=== PATIENT | female | born 1975 | race Caucasian/White ===

== ENCOUNTER → 2020-03-01 | Outpatient (CLI) | payer OTHER ==
[2020-03-01 10:56] LABS: Basophils % (A) 0 %; Eosinophils # (A) 0.2 k/uL (0-0.7); Eosinophils % (A) 2 %; HCT 41.6 % (34.0-46.0); HGB 13.4 gm/dL (11.4-16.0); Lymphocytes # (A) 1.8 k/uL (1.0-4.8); Lymphocytes % (A) 22 %; MCH 27.3 pg (25.0-35.0); MCHC 32.1 g/dL (31.0-37.0); MCV 85.2 fL (80.0-100.0); Mean Platelet Volume 7.3; Monocytes # (A) 0.4 k/uL (0-1.0); Monocytes % (A) 5 %; Neutrophils # (A) 5.6 k/uL (1.3-7.7); Neutrophils % (A) 69 %; Platelet Count 322 k/uL (150-450); RBC 4.88 m/uL (3.80-5.40); WBC 8.1 k/uL (3.8-10.6)
[2020-03-01 16:49] LABS: African American GFR (CKD) 129.4 (60.0-200.0); Albumin 4.2 g/dL (3.80-4.90); Albumin/Globulin Ratio 1.91 (1.60-3.17); Anion Gap 8.7 mmol/L (4.00-12.00); BUN/Creat Ratio 26.67 Ratio (12.00-20.00); Calcium 8.9 mg/dL (8.7-10.3); Carbon Dioxide 23.3 mmol/L (21.6-31.8); Chol/HDL Ratio 3.44; Globulin 2.2 g/dL (1.6-3.3); LDL Cholesterol,Calculated 89.8 mg/dL (0.0-131.0); Non-African American GFR(CKD) 111.6 (60.0-200.0); Potassium 4.5 mmol/L (3.5-5.5); Total Bilirubin 0.2 mg/dL (0.3-1.2); Total Protein 6.4 g/dL (6.2-8.2); VLDL Calculation 20.2 mg/dL (5.00-40.00)
[2020-03-01 18:58] LABS: Hemoglobin A1C 5.4 % (4.0-6.0)
[2020-03-02 13:00] LABS: C. trachomatis,PCR Negative (Neg,Equiv); Chlamydia trachomatis Source Urine; N. gonorrhoeae,PCR Negative (Neg,Equiv); Neisseria Source Urine
== END | disposition home or self-care (01) ==
LOC: LABWHC1 09:45
PROVIDERS: ATTEND Nurse Practitioner Family
DX: E66.01 Morbid (severe) obesity due to excess calories (principal); Z20.9 Contact with and (suspected) exposure to unspecified communicable disease
CPT/HCPCS: 36415; 80053; 80061; 83036; 84443; 85025; 87491; 87591

== ENCOUNTER → 2020-06-18 | Outpatient (CLI) | payer OTHER | END | disposition home or self-care (01) | LOC: LABWHC1 13:03 | PROVIDERS: ATTEND Nurse Practitioner Family | DX: U07.1 COVID-19 (principal) | CPT/HCPCS: U0003; C9803 ==

== ENCOUNTER → 2021-01-16 | Outpatient (CLI) | payer OTHER ==
[2021-01-16 18:45] LABS: Basophils # (A) 0.01 X 10*3/uL (0.00-0.10); Basophils % (A) 0.1 %; Eosinophils # (A) 0.21 X 10*3/uL (0.04-0.35); Eosinophils % (A) 2.4 %; HCT 40.3 % (37.2-46.3); HGB 12.8 g/dL (12.0-15.0); Lymphocytes # (A) 1.58 X 10*3/uL (0.90-5.00); Lymphocytes % (A) 17.8 %; MCH 27.4 pg (27.0-32.0); MCHC 31.8 g/dL (32.0-37.0); MCV 86.1 fL (80.0-97.0); Mean Platelet Volume 10.6 fL (9.5-12.2); Monocytes # (A) 0.65 X 10*3/uL (0.20-1.00); Monocytes % (A) 7.3 %; Neutrophils # (A) 6.41 X 10*3/uL (1.80-7.70); Platelet Count 333 X 10*3/uL (140-440); RBC 4.68 X 10*6/uL (4.10-5.20)
[2021-01-16 23:29] LABS: African American GFR (CKD) 122.1 (60.0-200.0); Albumin 4.3 g/dL (3.80-4.90); Albumin/Globulin Ratio 1.87 (1.60-3.17); Anion Gap 9.8 mmol/L (4.00-12.00); Carbon Dioxide 23.2 mmol/L (21.6-31.8); Chol/HDL Ratio 4.39; Globulin 2.3 g/dL (1.6-3.3); LDL Cholesterol,Calculated 92.2 mg/dL (0.0-131.0); Non-African American GFR(CKD) 105.4 (60.0-200.0); Potassium 4.6 mmol/L (3.5-5.5); Total Bilirubin 0.3 mg/dL (0.2-1.2); Total Protein 6.6 g/dL (6.2-8.2); VLDL Calculation 29.8 mg/dL (5.00-40.00)
[2021-01-16 23:51] LABS: T4, Free (Free Thyroxine) 1.3 ng/dL (0.80-1.80)
== END | disposition home or self-care (01) ==
LOC: LABWHC1 12:29
PROVIDERS: ATTEND Nurse Practitioner
DX: Z00.00 Encounter for general adult medical examination without abnormal findings (principal)
CPT/HCPCS: 36415; 80053; 80061; 84439; 84443; 85025

== ENCOUNTER → 2021-02-05 | Outpatient (CLI) | payer OTHER ==
--- NOTE | 2021-02-06 07:29 | XR ---
EXAMINATION TYPE: XR chest 2V DATE OF EXAM: 02/05/2021 COMPARISON: 05/24/2013 HISTORY: Dyspnea TECHNIQUE: Frontal and lateral views of the chest are obtained. FINDINGS: There is no focal air space opacity, pleural effusion, or pneumothorax seen. The cardiac silhouette size is within normal limits. The osseous structures are intact. IMPRESSION: No acute cardiopulmonary process.
== END | disposition home or self-care (01) ==
LOC: RADXRMAIN 16:58
PROVIDERS: ATTEND Nurse Practitioner
DX: R06.00 Dyspnea, unspecified (principal)
CPT/HCPCS: 71046

== ENCOUNTER → 2021-02-20 | Outpatient (CLI) | payer OTHER ==
--- NOTE | 2021-02-20 08:55 | CT ---
EXAMINATION TYPE: CT chest wo con DATE OF EXAM: 02/20/2021 COMPARISON: None HISTORY: COVID-[address] DLP: 833.[address] of the chest was performed with lung and mediastinal window settings submitted. The la ck of contrast limits evaluation of the vascular, mediastinal and parenchymal structures including th e upper abdomen. LUNGS: The lungs are clear and free of infiltrate. No atelectasis. No pulmonary nodule or mass is de tected. No pleural effusion. No CT evidence of interstitial lung disease. MEDIASTINUM/ROXANA: Thoracic aorta is of normal caliber with limited evaluation given lack of contrast . The heart is not enlarged. No evidence for mediastinal mass. No lymph nodes greater than 1cm. UPPER ABDOMEN: No significant abnormality is seen. OTHER: No significant other abnormality. IMPRESSION: 1. No evidence for infiltrate or interstitial lung disease.
== END | disposition home or self-care (01) ==
LOC: RADCTMAIN 08:20
PROVIDERS: ATTEND Family Medicine
DX: U07.1 COVID-19 (principal); R06.02 Shortness of breath
CPT/HCPCS: 71250

== ENCOUNTER → 2022-11-25 | Outpatient (CLI) | payer OTHER ==
[2022-11-26 02:31] LABS: ALT 20 U/L (8-44); AST 16 U/L (13-35); African American GFR (CKD) 120.4 (60.0-200.0); Albumin 4.3 g/dL (3.8-4.9); Albumin/Globulin Ratio 1.79 (1.60-3.17); Alkaline Phosphatase 98 U/L (41-126); BUN/Creat Ratio 16.86 Ratio (12.00-20.00); Basophils # (A) 0.03 X 10*3/uL (0.00-0.10); Basophils % (A) 0.4 %; Blood Urea Nitrogen 11.8 mg/dL (9.0-27.0); Calcium 9.5 mg/dL (8.7-10.3); Carbon Dioxide 27.1 mmol/L (20.0-27.5); Chloride 103 mmol/L (96-109); Chol/HDL Ratio 4.57 Ratio; Eosinophils # (A) 0.16 X 10*3/uL (0.04-0.35); Eosinophils % (A) 2.2 %; Globulin 2.4 g/dL (1.6-3.3); Glucose 100 mg/dL (70-110); HCT 40.9 % (37.2-46.3); HGB 12.9 g/dL (12.0-15.0); Immature Grans, Automated 0.5 %; LDL Cholesterol,Calculated 122.7 mg/dL (0.0-131.0); Lymphocytes # (A) 1.63 X 10*3/uL (0.90-5.00); Lymphocytes % (A) 22.3 %; MCHC 31.5 g/dL (32.0-37.0); MCV 88.9 fL (80.0-97.0); Mean Platelet Volume 10.6 fL (9.5-12.2); Monocytes # (A) 0.47 X 10*3/uL (0.20-1.00); Monocytes % (A) 6.4 %; NRBC Per 100 WBC 0 /100 WBCS (0.0-0.0); Neutrophils # (A) 4.99 X 10*3/uL (1.80-7.70); Neutrophils % (A) 68.2 %; Non-African American GFR(CKD) 103.9 (60.0-200.0); Platelet Count 329 X 10*3/uL (140-440); Potassium 4.7 mmol/L (3.5-5.5); Sodium 141 mmol/L (135-145); Total Protein 6.7 g/dL (6.2-8.2); WBC 7.32 X 10*3/uL (4.50-10.00)
[2022-11-26 08:48] LABS: HIV 2 AB Non-Reactive (Non-Reactive); HIV AB P24 Non-Reactive (Non-Reactive); HIV P24 AG Non-Reactive (Non-Reactive)
== END | disposition home or self-care (01) ==
LOC: LABWHC1 14:08
PROVIDERS: ATTEND Family Medicine
DX: Z11.4 Encounter for screening for human immunodeficiency virus [HIV] (principal); Z11.59 Encounter for screening for other viral diseases; I10 Essential (primary) hypertension
CPT/HCPCS: 36415; 80053; 80061; 84443; 85025; 86803; 87390

== ENCOUNTER → 2023-03-10 | Outpatient (CLI) | payer OTHER ==
--- NOTE | 2023-03-10 08:45 | MM ---
Reason for Exam: Clinical finding. Baseline mammogram. Patient History: Menarche at age 15. First Full-Term at age 22. Postmenopausal. Risk Values: Beulah 5 year model risk: 0.7%. NCI Lifetime model risk: 7.8%. Prior Study Comparison: Patient's first Mammogram. Tissue Density: There are scattered fibroglandular densities. Findings: Analyzed By CAD. No suspicious mass within the right breast. No definitive abnormality in the patient's palpable region in the right breast. There is a round density mass within the left upper outer quadrant breast at middle depth measuring 9 mm. Probable lymph node. No suspicious group of calcifications in the breast. No architectural distortion. Overall Assessment: Incomplete: need additional imaging evaluation, BI-RAD 0 Management: Diagnostic Breast Ultrasound of both breasts. A clinical breast exam by your physician is recommended on an annual basis and results should be correlated with mammographic findings. This exam should not preclude additional follow-up of suspicious palpable abnormalities. Results were given to the patient verbally at the time of exam. Note on Beulah scores and lifetime risk: 1. A Beulah score greater than 3% is considered moderate risk. If this is the case, consider specialist referral to assess eligibility for a risk reducing agent. If overall lifetime risk for the development of breast cancer is 20% or higher, the patient may qualify for future screening with alternating mammogram and breast MRI. Electronically signed and approved by: Jermaine Lamb D.O.
--- NOTE | 2023-03-10 08:47 | USB ---
Reason for Exam: Additional evaluation requested from abnormal screening. Patient History: Menarche at age 15. First Full-Term at age 22. Postmenopausal. Risk Values: Beulah 5 year model risk: 0.7%. NCI Lifetime model risk: 7.8%. Technique: Method: Targeted. Findings: The upper outer quadrant of the left breast, the area of palpable concern of the right breast, the axilla of both breasts and the retroareolar of both breasts were scanned. Targeted ultrasound of the right breast at patient's recent abnormality at 2:00 15 cm of the nipple demonstrates a benign lipoma measuring 2.5 x 0.9 x 2.5 cm. Additional evaluation of the right nipple and axillary tail were performed without abnormality. Targeted ultrasound of the left breast from 12 3:00 with additional evaluation of the nipple in axial toe was performed. There is a benign lymph node corresponding to mammogram measuring 0.8 x 0.5 x 0.6 cm with central fatty hilum and no thickened cortex. Overall Assessment: Benign, BI-RAD 2 Management: Screening Mammogram of both breasts in 1 year. Clinical management for patient's right chest wall lipoma. A clinical breast exam by your physician is recommended on an annual basis and results should be correlated with mammographic findings. This exam should not preclude additional follow-up of suspicious palpable abnormalities. Results were given to the patient verbally at the time of exam. Electronically signed and approved by: Jermaine Lamb D.O.
== END | disposition home or self-care (01) ==
LOC: RADMAMWWP 07:22
PROVIDERS: ATTEND Family Medicine
DX: N63.10 Unspecified lump in the right breast, unspecified quadrant (principal); Z78.0 Asymptomatic menopausal state
CPT/HCPCS: 77066; 76642; G0279; 77062

== ENCOUNTER → 2023-04-30 | Outpatient (CLI) | payer OTHER ==
[2023-04-30 08:04] VITALS: BP 138/86; PULSE 73; RESP 17; TEMP 98.9
--- NOTE | 2023-04-30 08:16 | P.GSHP ---
History of Present Illness H&P Date: 04/30/23 Siria is a 47-year-old female seen in consultation for Dr. Eliel Mancia regarding a palpable change in the right breast. She underwent a bilateral mammogram [place] [address] this revealed no suspicious masses in the right breast no definitive abnormality in the patient's palpable region in the right breast. There was a round density mass within the left upper outer quadrant breast middle depth probable lymph node. No suspicious group of calcifications in either breast. An bilateral breast ultrasound was recommended. This was performed on the same date. The ultrasound revealed in the upper quadrant of the left breast the area of palpable concern of the right breast and axilla both breasts in the retroareolar of both breasts being scanned. Targeted ultrasound of the right breast revealed a benign-appearing lipoma 2.5 x 2.5 cm. Additional evaluation of the nipple and axillary tail were performed without abnormality. In the left breast there was a benign-appearing lymph node corresponding to mammographic abnormality with a central fatty hilum and no thickened cortex. This was felt to be benign BIRADS 2 and screening mammogram of the breast in 1 year was recommended. Several weeks ago the patient noted an mass in her right breast in the upper inner quadrant region. She hits not certain as to how long it has been there. It is not tender. It has not changed in size since she noted it. She has not had any surgery on her breast. She is not complaining of any recent trauma or infection in the breast. She does not complain of any abnormal nipple discharge. Caffeine: over 2 liter/day nicotine: none, stopped over 20 years used to be 1 PPD for over 10 years chocolate: frequently Family History: father: from lung cancer maternal grandmother: skin cancer paternal grandmother: lung cancer Hormonal history: Menarche: 16 , breast fed: yes, age at first : 22 menopause: no periods for 2 years hormones: none BCP: never used, tubes tied Surgical history: Tubal ligation appy 3 C-sections Medical History: psoraitic arthritis Social HIstory: Nicotine: As above Alcohol: Negative Drugs: Negative - Constitutional Constitutional: Denies chills, Denies fever - EENT Eyes: denies blurred vision, denies pain Ears: deny: decreased hearing, tinnitus Ears, nose, mouth and throat: Denies headache, Denies sore throat - Breasts Breasts: bilateral: as per HPI - Cardiovascular Cardiovascular: Denies chest pain, Denies shortness of breath - Respiratory Respiratory: Denies cough, Denies 7 - Gastrointestinal Gastrointestinal: Denies abdominal pain, Denies diarrhea, Denies nausea, Denies vomiting - Genitourinary (Female) Genitourinary: Denies dysuria, Denies hematuria - Menstruation Menstruation: Reports postmenopausal - Musculoskeletal Musculoskeletal: Denies myalgias - Integumentary Integumentary: Reports as per HPI - Neurological Neurological: Denies numbness, Denies weakness - Psychiatric Psychiatric: Denies anxiety, Denies depression - Endocrine Endocrine: Denies fatigue, Denies weight change - Hematologic/Lymphatic Comment: none - Allergic/Immunologic Allergic/Immunologic: Reports as per HPI Past Medical History Past Medical History: No Reported History Additional Past Medical History / Comment(s): MIGRAINES,BACK PAIN History of Any Multi-Drug Resistant Organisms: None Reported Past Surgical History: Appendectomy, Section, Tubal Ligation Past Anesthesia/Blood Transfusion Reactions: No Reported Reaction, Motion Sickness Past Psychological History: No Psychological Hx Reported Past Alcohol Use History: None Reported Additional Past Alcohol Use History / Comment(s): STARTED SMOKING AGE 15 Past Drug Use History: None Reported - Past Family History Mother Family Medical History: No Reported History Medications and Allergies Home Medications Medication Instructions Recorded Confirmed Type Cholecalciferol [Vitamin D3] 2,000 unit PO DAILY 07/24/15 04/30/23 History Excedrin Migraine 1 tab PO DIRECTED PRN 08/03/15 04/30/23 History Vitamin B12 1 tab PO DAILY 08/03/15 04/30/23 History methylPREDNISolone 1 dose PO DIRECTED 08/03/15 04/30/23 History [Methylprednisolone] Adalimumab [Humira Pen] 1 injection SQ DIRECTED 04/30/23 04/30/23 History Gabapentin 300 mg PO TID 04/30/23 04/30/23 History Allergies Allergy/AdvReac Type Severity Reaction Status Date / Time Sulfa (Sulfonamide Allergy Unknown Unknown Verified 04/30/23 07:48 Antibiotics) Surgical - Exam - General no distress - Eyes normal ocular movement - ENT no hearing loss - Neck trachea midline - Respiratory normal respiratory effort, clear to auscultation - Cardiovascular Rhythm: regular Heart Sounds: normal: S1, S2 - Abdomen Abdomen: soft, non tender, no guarding, no rigid, no rebound - Integumentary normal turgor - Neurologic no disoriented, no combative - Musculoskeletal normal gait - Psychiatric oriented to time, oriented to person, oriented to place, speech is normal, memory intact Breast Exam: BRA: ? size inspection: bilateral grade 3 ptosis palpation: Right breast: Multiple positional exam no dominant masses or nodules of concern in the upper inner chest wall there is a approximately a 2-1/2-3 cm area of nodularity Right axilla: No adenopathy of concern Left breast: Multi-positional exam no dominant masses or nodules of concern Left axilla: No adenopathy of concern Results Mammogram and ultrasound personally reviewed Assessment and Plan Assessment: Impression: Palpable mass right breast/chest wall upper inner quadrant area most likely lipoma psoriatic arthritis BMI 70.4 Plan: Resection of palpable mass right chest wall/breast in the operating room Risk and benefits of the procedure discussed with the patient. Risks include but are not limited to bleeding, infection, reaction to the anesthetic. She understands and wishes to proceed. Cc: Dr. Eliel Mancia
[2023-04-30 16:33] LABS: ALT 21 U/L (8-44); AST 17 U/L (13-35); Albumin 4.3 d/dL (3.8-4.9); Albumin/Globulin Ratio 1.79 Ratio (1.60-3.17); Alkaline Phosphatase 96 U/L (41-126); BUN/Creat Ratio 21.83 Ratio (12.00-20.00); Blood Urea Nitrogen 13.1 mg/dL (9.0-27.0); Calcium 9.6 mg/dL (8.7-10.3); Carbon Dioxide 26.3 mmol/L (21.6-31.8); Chloride 102 mmol/L (96-109); Globulin 2.4 d/dL (1.6-3.3); Glucose 114 mg/dL (70-110); Potassium 4.7 mmol/L (3.5-5.5); Sodium 139 mmol/L (135-145); Total Bilirubin 0.3 mg/dL (0.3-1.2); Total Protein 6.7 d/dL (6.2-8.2)
[2023-04-30 17:04] LABS: Basophils # (A) 0.02 X 10*3/uL (0.00-0.10); Basophils % (A) 0.3 %; Eosinophils # (A) 0.22 X 10*3/uL (0.04-0.35); HGB 13.4 d/dL (12.0-15.0); Lymphocytes # (A) 2.18 X 10*3/uL (0.90-5.00); Lymphocytes % (A) 29.5 %; MCH 28.6 pg (27.0-32.0); MCHC 32.7 d/dL (32.0-37.0); MCV 87.6 FL (80.0-97.0); Mean Platelet Volume 10.5 FL (9.5-12.2); Monocytes # (A) 0.63 X 10*3/uL (0.20-1.00); Monocytes % (A) 8.5 %; NRBC Per 100 WBC 0 X 10*3/uL (0.00-0.01); Neutrophils # (A) 4.32 X 10*3/uL (1.80-7.70); Neutrophils % (A) 58.3 %; Platelet Count 329 X 10*3/uL (140-440); RBC 4.68 X 10*6/uL (4.10-5.20); RDW 12.7 % (11.5-14.5)
== END ==
LOC: WWCWWP 07:34
PROVIDERS: ATTEND Surgery
DX: N63.21 Unspecified lump in the left breast, upper outer quadrant (principal); N63.12 Unspecified lump in the right breast, upper inner quadrant; L40.50 Arthropathic psoriasis, unspecified; Z87.891 Personal history of nicotine dependence; Z88.2 Allergy status to sulfonamides
CPT/HCPCS: 80053; 85025

== ENCOUNTER → 2023-06-12 | Outpatient (CLI) | payer OTHER ==
--- NOTE | 2023-06-12 15:10 | P.PN ---
Subjective Progress Note Date: 06/12/23 H&P Date: 06-12-23 Siria is a 47-year-old female seen in consultation for Dr. Eliel Mancia regarding a palpable change in the right breast. [place] [id number] this revealed no suspicious masses in the right breast no definitive abnormality in the patient's palpable region in the right breast. There was a round density mass within the left upper outer quadrant breast middle depth probable lymph node. No suspicious group of calcifications in either breast. An bilateral breast ultrasound was recommended. This was performed on the same date. The ultrasound revealed in the upper quadrant of the left breast the area of palpable concern of the right breast and axilla both breasts in the retroareolar of both breasts being scanned. Targeted ultrasound of the right breast revealed a benign-appearing lipoma 2.5 x 2.5 cm. Additional evaluation of the nipple and axillary tail were performed without abnormality. In the left breast there was a benign-appearing lymph node corresponding to mammographic abnormality with a central fatty hilum and no thickened cortex. This was felt to be benign BIRADS 2 and screening mammogram of the breast in 1 year was recommended. Several weeks ago the patient noted an mass in her right breast in the upper inner quadrant region. This increased in size recently. She is not certain as to how long it has been there. It is tender. She has not had any surgery on her breast. She is not complaining of any recent trauma or infection in the breast. She does not complain of any abnormal nipple discharge. Caffeine: over 2 liter/day nicotine: none, stopped over 20 years used to be 1 PPD for over 10 years chocolate: frequently Family History: father: from lung cancer maternal grandmother: skin cancer paternal grandmother: lung cancer Hormonal history: Menarche: 16 , breast fed: yes, age at first : 22 menopause: no periods for 2 years hormones: none BCP: never used, tubes tied Surgical history: Tubal ligation appy 3 C-sections Medical History: psoraitic arthritis Social HIstory: Nicotine: As above Alcohol: Negative Drugs: Negative - Constitutional Constitutional: Denies chills, Denies fever - EENT Eyes: denies blurred vision, denies pain Ears: deny: decreased hearing, tinnitus Ears, nose, mouth and throat: Denies headache, Denies sore throat - Breasts Breasts: bilateral: as per HPI - Cardiovascular Cardiovascular: Denies chest pain, Denies shortness of breath - Respiratory Respiratory: Denies cough - Gastrointestinal Gastrointestinal: Denies abdominal pain, Denies diarrhea, Denies nausea, Denies vomiting - Genitourinary (Female) Genitourinary: Denies dysuria, Denies hematuria - Menstruation Menstruation: Reports postmenopausal - Musculoskeletal Musculoskeletal: Denies myalgias - Integumentary Integumentary: Reports as per HPI - Neurological Neurological: Denies numbness, Denies weakness - Psychiatric Psychiatric: Denies anxiety, Denies depression - Endocrine Endocrine: Denies fatigue, Denies weight change - Hematologic/Lymphatic Comment: none - Allergic/Immunologic Allergic/Immunologic: Reports as per HPI Past Medical History Past Medical History: No Reported History Additional Past Medical History / Comment(s): MIGRAINES,BACK PAIN History of Any Multi-Drug Resistant Organisms: None Reported Past Surgical History: Appendectomy, Section, Tubal Ligation Past Anesthesia/Blood Transfusion Reactions: No Reported Reaction, Motion Sickness Past Psychological History: No Psychological Hx Reported Past Alcohol Use History: None Reported Additional Past Alcohol Use History / Comment(s): STARTED SMOKING AGE 15 Past Drug Use History: None Reported - Past Family History Mother Family Medical History: No Reported History Medications and Allergies Home Medications Medication Instructions Recorded Confirmed Type Cholecalciferol [Vitamin D3] 2,000 unit PO DAILY 07/24/15 04/30/23 History Excedrin Migraine 1 tab PO DIRECTED PRN 08/03/15 04/30/23 History Vitamin B12 1 tab PO DAILY 08/03/15 04/30/23 History methylPREDNISolone 1 dose PO DIRECTED 08/03/15 04/30/23 History [Methylprednisolone] Adalimumab [Humira Pen] 1 injection SQ DIRECTED 04/30/23 04/30/23 History Gabapentin 300 mg PO TID 04/30/23 04/30/23 History Allergies Allergy/AdvReac Type Severity Reaction Status Date / Time Sulfa (Sulfonamide Allergy Unknown Unknown Verified 04/30/23 07:48 Antibiotics) Objective - Constitutional General appearance: Present: cooperative - EENT Eyes: Present: EOMI ENT: Present: hearing grossly normal - Neck Neck: Present: normal ROM - Respiratory Respiratory: bilateral: CTA - Cardiovascular Heart sounds: normal: S1, S2 - Integumentary Integumentary: Present: normal turgor - Musculoskeletal Musculoskeletal: Present: gait normal - Psychiatric Psychiatric: Present: A&O x's 3, appropriate affect, intact judgment & insight - Additional findings Additional findings: Breast Exam: BRA: ? size inspection: bilateral grade 3 ptosis palpation: Right breast: Multiple positional exam no dominant masses or nodules of concern in the upper inner chest wall there is a approximately a 2-1/2-3 cm area of nodularity Right axilla: No adenopathy of concern Left breast: Multi-positional exam no dominant masses or nodules of concern Left axilla: No adenopathy of concern Assessment and Plan Assessment: Impression: Palpable mass right breast/chest wall upper inner quadrant area most likely lipoma psoriatic arthritis BMI 70.4 Plan: Resection of palpable mass right chest wall/breast in the operating room Risk and benefits of the procedure discussed with the patient. Risks include but are not limited to bleeding, infection, reaction to the anesthetic. She understands and wishes to proceed. Cc: Dr. Eliel Mancia
[2023-06-12 15:20] VITALS: BP 131/90; PULSE 82; RESP 18; TEMP 98
== END ==
LOC: WWCWWP 14:56
PROVIDERS: ATTEND Surgery
DX: D24.1 Benign neoplasm of right breast (principal); L40.50 Arthropathic psoriasis, unspecified; Z68.45 Body mass index [BMI] 70 or greater, adult; Z88.1 Allergy status to other antibiotic agents; Z88.2 Allergy status to sulfonamides; Z90.49 Acquired absence of other specified parts of digestive tract; Z86.69 Personal history of other diseases of the nervous system and sense organs; Z87.891 Personal history of nicotine dependence

== ENCOUNTER 2023-06-23 07:55 | Day surgery (SDC) | payer OTHER ==
[~2023-06-23 07:55] MED LIST: DEXAMETHASONE SOD PHOSPHATE 4 MG/ML 1 ML VIAL IV ONE; HEPARIN SODIUM,PORCINE/PF 5,000 UNIT/0.5 ML SYRINGE SQ PRN; LACTATED RINGERS 1,000 ML IV SCH; MIDAZOLAM 2 MG/2 ML VIAL IV PRN; ONDANSETRON 4 MG/2 ML VIAL IVP ONE; Pre Op ABX Message 1 EACH MISC MISCELLANE ONE; SCOPOLAMINE 1 MG/72 HR PATCH TRANSDERM ONE
[2023-06-23] MEDS ORDERED: LIDOCAINE 1% (10MG/ML) FOR IV START INTRADERMA ONE (08:46)
[2023-06-23] MEDS ORDERED: SCOPOLAMINE 1 MG/72 HR PATCH TRANSDERM ONE (08:47)
[2023-06-23] MEDS ORDERED: fentaNYL (PF) 50 MCG/ML 2 ML AMP ONE (09:24)
[2023-06-23] MEDS ORDERED: LIDOCAINE 1% INJ 10MG/ML (20 ML MDV) ONE (09:24)
[2023-06-23] MEDS ORDERED: SUGAMMADEX SODIUM 200 MG/2 ML SDV IV ONE (09:24)
[2023-06-23] MEDS ORDERED: SUCCINYLCHOLINE CHLORIDE 200 MG/10 ML VIAL IV ONE (09:24)
[2023-06-23] MEDS ORDERED: PROPOFOL 10 MG/ML 20 ML VIAL IV ONE (09:24)
[2023-06-23] MEDS ORDERED: MIDAZOLAM 2 MG/2 ML VIAL ONE (09:24)
[2023-06-23] MEDS ORDERED: ROCURONIUM 10 MG/ML (5 ML VIAL) IV ONE (09:24)
--- NOTE | 2023-06-23 10:13 | P.OP ---
Date of Procedure: 06/23/23 Preoperative Diagnosis: Mass right chest wall Postoperative Diagnosis: same Procedure(s) Performed: excision of soft tissue mass right chest wall Anesthesia: KING Surgeon: Meredith Garza Estimated Blood Loss (ml): 4 IV fluids (ml): 400 Pathology: other (mass right chest wall consistant with lipoma) Condition: stable Disposition: same day Indications for Procedure: Symptomatic soft tissue mass right chest wall Operative Findings: probable lipoma right chest wall/upper inner breast area Description of Procedure: The patient was taken to the operative suite. Following induction of anesthesia the right chest wall/ upper inner breast was prepped and draped in a sterile fashion. An incision was made over the palpable abnormality. A 2.5 cm lobulated area of fat was identified and removed. This was consistent with the ultrasound findings and palpable abnormality. The wound was irrigated. After we were assured that hemostasis was attained the deep tissues were closed using 3-0 Vicryl suture. The skin was closed using 4-0 Monocryl. The patient tolerated the procedure in stable condition.
[2023-06-23] MEDS: HYDROmorphone 0.5 MG/0.5 ML SYRINGE IVP PRN ×2 (10:30→10:37)
[2023-06-23 10:32] VITALS: TEMP 97.2
[2023-06-23 12:04] VITALS: BP 120/80
[2023-06-23 12:05] VITALS: PULSE 91; RESP 20
[2023-06-23] MEDS ORDERED: IBUPROFEN 600 MG TAB PO ONE (12:05)
== END 2023-06-23 12:48 | disposition home or self-care (01) ==
LOC: OR 07:55
PROVIDERS: ATTEND Surgery
DX: D17.79 Benign lipomatous neoplasm of other sites (principal); D24.1 Benign neoplasm of right breast; R22.2 Localized swelling, mass and lump, trunk; G43.909 Migraine, unspecified, not intractable, without status migrainosus; Z87.891 Personal history of nicotine dependence; Z79.1 Long term (current) use of non-steroidal anti-inflammatories (NSAID); Z79.899 Other long term (current) drug therapy; Z88.2 Allergy status to sulfonamides; Z98.51 Tubal ligation status; Z98.890 Other specified postprocedural states; Z87 Personal history of other diseases and conditions
CPT/HCPCS: 21555; 81025; 88305; J2250; J0330; J1100; J2405; J2001; J3010; J2704; J1170; J1644

== ENCOUNTER → 2023-07-02 | Outpatient (CLI) | payer OTHER ==
--- NOTE | 2023-07-02 15:51 | P.PN ---
Progress Note - Text Progress Note Date: 07/02/23 Siria is a 48 year old status post resedtion of a lipoma on 06-23-23 from the right breast. She tolerated the procedure without difficulty. lungs: clear heart: RRR Incision: Clean and dry She is due for bilateral mammogram in February-2024 with appointment at that time CC: DR. Eliel Mnacia
[2023-07-02 16:13] VITALS: BP 135/84; PULSE 74; RESP 18; TEMP 97.6
== END ==
LOC: WWCWWP 15:31
PROVIDERS: ATTEND Surgery
DX: D17.79 Benign lipomatous neoplasm of other sites (principal); Z88.2 Allergy status to sulfonamides; Z87.891 Personal history of nicotine dependence